=== PATIENT | male | born 1950 | race American Indian/Alaskan Native ===

== ENCOUNTER 2017-04-14 11:29 | Outpatient (CLI) | payer MEDICARE ==
[2017-04-14 12:29] LABS: Blood Urea Nitrogen 30 mg/dL (9-20)
--- NOTE | 2017-04-15 09:08 | Cat Scan Report ---
CT angiogram abdomen with bilateral runoff Indication: Claudication Technique: Contiguous transaxial images through the abdomen and lower extremities were performed following administration of intravenous contrast. 3-D reconstruction was performed on a dedicated work station for review. Findings: There is a atherosclerotic disease involving the abdominal aorta without evidence for aneurysm. Atherosclerotic calcification is identified extending into both iliac arteries. There is mild to moderate narrowing of the right external iliac/common femoral artery with mild narrowing of the left external iliac artery. Right lower extremity: The right superficial femoral artery is continuous. There areas of stenosis distally specifically along the abductor hiatus and extending to the popliteal artery with areas of atherosclerotic plaque. 2 vessel runoff is identified on the right side. Left lower extremity: There is a mild to moderate stenosis involving the origin of the left superficial femoral artery. The SFA is contiguous with areas of stenosis throughout. There is mild stenosis of the popliteal artery. 2 vessel runoff is identified. The peroneal artery does occlude in the proximal third. The liver, spleen, pancreas, gallbladder, adrenal glands and kidneys normal. There is no bowel obstruction. No free air or free fluid. Patient has evidence for prostate seeds in place. The urinary bladder is unremarkable. Impression: 1. Mild atherosclerotic disease present. 2. Mild/moderate stenosis involving the right distal external iliac artery extending into the common femoral artery. 3. Mild to moderate stenosis involving the origin of the left superficial femoral artery. 4. Scattered areas of stenosis and disease in the distal SFA and popliteal artery bilaterally. 5. 2 vessel runoff bilaterally.
== END 2017-04-14 11:30 | disposition home or self-care (01) ==
LOC: CT 11:29
PROVIDERS: ATTEND Radiology Vascular & Interventional Radiology
DX: E11.51 Type 2 diabetes mellitus with diabetic peripheral angiopathy without gangrene (principal); I70.211 Atherosclerosis of native arteries of extremities with intermittent claudication, right leg; I78.9 Disease of capillaries, unspecified
CPT/HCPCS: 36415; 75635; 82565; 84520; Q9967